=== PATIENT | male | born 1955 | race Caucasian/White ===

== ENCOUNTER 2016-12-01 05:44 | Emergency (ER) | payer OTHER ==
[~2016-12-01] VITALS: Ht 177.8 cm; Wt 82.3 kg
[2016-12-01 05:53] VITALS: BP 217/100; PULSE 78; RESP 18; TEMP 98; O2SAT 96
[2016-12-01 06:00] VITALS: BP 186/100; PULSE 80; RESP 16; O2SAT 98
[2016-12-01] MEDS ORDERED: LISI10TA3 PO (06:07)
[2016-12-01] MEDS ORDERED: METF500T PO (06:08)
[2016-12-01] MEDS ORDERED: METO50TA PO (06:08)
--- NOTE | 2016-12-01 06:10 | PD ---
HPI Chief Complaint: rash Time Seen by Provider: 06:05 Travel History International Travel<30 days: No Contact w/Intl Traveler<30days: No Traveled to known affect area: No History of Present Illness HPI 61-year-old male presents to the emergency department for pruritic dermatitis. Patient with history of stress-induced pruritic dermatitis. Patient states his primary care provider usually gives him a shot of steroid which resolved his symptoms. Patient states symptoms have been present and worsening over the past week to 2 weeks. Patient states recently his for 41 years has left him, patient's 2 daughters with her children are living with him in his home, his air conditioner in his car is not working, and he recently lost 2 jobs. Patient does have history of hypertension for which she is prescribed metoprolol and lisinopril anti-2 diabetes. Patient states blood sugars have been well-controlled. Patient has been using topical Eucerin cream without symptomatic relief. Patient has not tried any iyrm-ish-nthrfcd antihistamines such as Zyrtec or Benadryl or Zantac or Pepcid. Patient does not report any fever chills. Patient denies any lip tongue or throat swelling. No hoarseness or stridor. Patient has not yet taken his morning lisinopril or metoprolol dosage. [facility] Past Medical History Narrative Medical Hypertension, diabetes, stress/allergic dermatitis; no tobacco use; nursing notes reviewed Social History Tobacco Use: No Allergies-Medications (Allergen,Severity, Reaction): Coded Allergies: No Known Allergies (Unverified , 12/01/16) Reported Meds & Prescriptions Reported Meds & Active Scripts Active Medrol Dosepak (Methylprednisolone) 4 Mg Dspk 4 Mg PO DIRECTED Per Pharmacist direction Reported Metformin (Metformin HCl) 500 Mg Tab 500 Mg PO BIDPC With meals Metoprolol Tartrate 50 Mg Tab 50 Mg PO DAILY Lisinopril 10 Mg Tab 10 Mg PO DAILY Narrative Medication Lisinopril metoprolol Review of Systems Except as stated in HPI: all other systems reviewed are Neg General / Constitutional: No: Fever, Chills HENT: No: Congestion Cardiovascular: No: Chest Pain or Discomfort Respiratory: No: Shortness of Breath Gastrointestinal: No: Nausea, Vomiting Genitourinary: No: Flank Pain Musculoskeletal: No: Myalgias, Arthralgias Skin: Positive Rash, Positive Itching, Positive Hives Neurologic: Positive: Weakness Psychiatric: Positive: Anxiety Hematologic/Lymphatic: No: Lymph Node Enlargement Physical Exam Narrative GENERAL: Well-developed well-nourished male in no acute distress no respiratory distress no stridor or hoarseness SKIN: Warm and dry. Confluent erythematous rash with multiple areas of excoriation few urticarial lesions. HEAD: Normocephalic. EYES: No scleral icterus. No injection or drainage. NECK: Supple, trachea midline. No JVD or lymphadenopathy. CARDIOVASCULAR: Regular rate and rhythm without murmurs, gallops, or rubs. RESPIRATORY: Breath sounds equal bilaterally. No accessory muscle use. GASTROINTESTINAL: Abdomen soft, non-tender, nondistended. MUSCULOSKELETAL: No cyanosis, or edema. BACK: Nontender without obvious deformity. No CVA tenderness. Data Data Last Documented VS Vital Signs Date Time Temp Pulse Resp B/P Pulse Ox O2 Delivery O2 Flow Rate FiO2 12/01/16 06:50 85 16 183/85 100 Room Air 12/01/16 05:53 98.0 Orders Iv Access Insert/Monitor (12/01/16 06:10) Diphenhydramine Inj (Benadryl Inj) (12/01/16 06:15) Methylprednisolone So Succ Inj (Solumedr (12/01/16 06:15) Famotidine Inj (Pepcid Inj) (12/01/16 06:15) Sodium Chloride 0.9% Flush (Ns Flush) (12/01/16 06:15) Enalaprilat Inj (Vasotec Inj) (12/01/16 06:15) Metoprolol Tartrate (Lopressor) (12/01/16 07:15) MDM Medical Decision Making Medical Screen Exam Complete: Yes Emergency Medical Condition: Yes Medical Record Reviewed: Yes Differential Diagnosis Allergic dermatitis, contact dermatitis, cellulitis, TEN, Patel-Manfred syndrome, uncontrolled hypertension Narrative Course IV access obtained patient administered Benadryl 25 mg IV Solu-Medrol 145 mg IV 2 mg of Pepcid. Patient also noted be hypertensive and has not yet taken his morning antihypertensive medications at given Vasotec 1.25 mg IV and his morning dose of metoprolol 50 mg IV Patient is clinically improved and symptomatically improved. Patient is stable for outpatient management and close follow-up with his primary care provider Dr. Head with recommendation for follow-up with [facility] operator. Diagnosis Primary Impression: Allergic dermatitis Additional Impression: HTN (hypertension) Qualified Code: I10 - Essential hypertension Referrals: Eduardo Head MD 2 days [facility] call for appointment [facility] [facility] call for appointment Patient Instructions: General Instructions Additional Instructions: Avoid overheating Increase fluid hydration Complete course of tapering steroids; monitor blood sugars closely Use [id number]-[id number] Benadryl 25-50 mg as often as every 4-6 hours as needed for rash and itching be aware this medication may cause drowsiness may use Zyrtec 10 mg daily as an alternative antihistamine for itching Takes Zantac 150 twice daily 7 days Continue current outpatient medications for blood pressure and diabetic control Follow-up with your primary care provider Dr. Head; recommend follow-up with [facility] operator Return to the emergency department for any concerns or change in condition Take acetaminophen/Tylenol as needed for fever 100.4F or greater Med/Other Pt SpecificInfo: Prescription(s) given Scripts Methylprednisolone Dosepak (Medrol Dosepak)4 Mg Dspk4 Mg PO DIRECTED #1 DSPK Ref 0 Per Pharmacist direction Prov:Micaela Villela MD 12/01/16 Disposition: 01 DISCHARGE HOME Condition: Stable Micaela Villela MD Dec 01, 2016 06:10
[2016-12-01] MEDS ORDERED: diphenhydrAMINE HCL 50 MG/ML VIAL IVP ONE (06:15)
[2016-12-01] MEDS ORDERED: FAMOTIDINE 20 MG/2 ML VIAL IV PUSH ONE (06:15)
[2016-12-01] MEDS ORDERED: SODIUM CHLORIDE 0.9% FLUSH 10 ML FLUSH IV FLUSH PRN (06:15)
[2016-12-01] MEDS ORDERED: ENALAPRILAT 1.25 MG/ML VIAL IV PUSH ONE (06:15)
[2016-12-01] MEDS ORDERED: methylPREDNISolone SOD SUCC 125 MG/2 ML VIAL IVP ONE (06:15)
[2016-12-01 06:25] VITALS: BP 184/91; PULSE 82; RESP 16
[2016-12-01 06:35] VITALS: BP 185/78; PULSE 68
[2016-12-01 06:50] VITALS: BP 183/85; PULSE 85; RESP 16; O2SAT 100
[2016-12-01] MEDS ORDERED: MEDR4PAK PO (06:56)
[2016-12-01] MEDS ORDERED: METOPROLOL TARTRATE 50 MG TAB PO ONE (07:15)
== END 2016-12-01 07:43 | disposition home or self-care (01) ==
LOC: PHED 05:44
DX: L23.9 Allergic contact dermatitis, unspecified cause (principal); I10 Essential (primary) hypertension; E11.9 Type 2 diabetes mellitus without complications; Z79.84 Long term (current) use of oral hypoglycemic drugs; Z79.899 Other long term (current) drug therapy
CPT/HCPCS: 96374; 96375; 99284; J1200; J2930